=== PATIENT | female | born 1985 | race Caucasian/White ===

== ENCOUNTER 2022-09-08 12:28 | Outpatient (CLI) | payer MEDICAID, SELFPAY | END 2022-09-08 12:29 | disposition home or self-care (01) | LOC: LKVREF 12:31 | PROVIDERS: PCP Nurse Practitioner Family; Visit Provider Registered Nurse | DX: Z11.9 Encounter for screening for infectious and parasitic diseases, unspecified (principal) | CPT/HCPCS: 86618 ==